=== PATIENT | male | born 2000 | race Caucasian/White ===

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

== ENCOUNTER 2019-12-18 00:47 | Emergency (ER) | payer OTHER ==
[~2019-12-18] VITALS: Ht 167.6 cm; Wt 81.9 kg
[2019-12-18 00:54] VITALS: Ht 167.6 cm; Wt 81.9 kg
[2019-12-18 03:13] VITALS: BP 146/83
== END 2019-12-18 03:14 | disposition home or self-care (01) ==
LOC: ED 00:47
DX: J06.9 Acute upper respiratory infection, unspecified (principal); J45.909 Unspecified asthma, uncomplicated
CPT/HCPCS: 87804; Q0092